=== PATIENT | male | born 1995 | race Caucasian/White ===

== ENCOUNTER 2016-03-26 19:20 | Emergency (ER) | payer BC, OTHER ==
[2016-03-26 19:26] VITALS: O2SAT 95
[2016-03-26] MEDS ORDERED: VANCOMYCIN HCL/NORMAL SALINE 250 ML IV ONE (19:37)
--- NOTE | 2016-03-26 19:46 | EDPHY ---
[id number] [id number] CHIEF COMPLAINT: Possible infected laceration HISTORY OF PRESENT ILLNESS: 21-year-old immunocompetent male with up-to-date tetanus states that 3 weeks ago while he was doing box jumps at home in [place] he sustained a right pretibial laceration which was subsequently sutured at a local hospital and he was placed on doxycycline. Sutures removed 14 days later and the area had no erythema. However he has been skiing for the past several days and noticed that the area possibly dehisced and has new erythema And discharge as well With lymphangitic streaking. No new trauma. No fever no chills. PHYSICAL EXAM (Prior to examination, patient consented to physical exam, hands were washed and my usual and customary physical exam procedures followed) 1) GENERAL: Well-developed, well-nourished, alert and oriented. Appears to be in no acute distress. 2) HEAD: Normocephalic 3) HEENT: sclera anicteric 4) LUNGS: Breathing comfortably. 5) SKIN: right pretibial region he has a granulating wound with no fetid odor. He has lymphangitic streaking extending proximally. Extent of erythema outlined 6) MUSCULOSKELETAL: compartments are soft. DP PT pulses are present and brisk. 7) NEUROLOGIC: Full sensation distally (Jenny,D Shanell) Constitutional: Initial Vital Signs Temperature (C) 36.8 C 03/26/16 19:23 Heart Rate 62 03/26/16 19:23 Respiratory Rate 14 03/26/16 19:23 Blood Pressure 140/78 H 03/26/16 19:23 O2 Sat (%) 95 03/26/16 19:23 O2 Delivery Mode Room Air Allergies/Adverse Reactions: amoxicillin Allergy (Verified 01/14/15 19:00) azithromycin [From Zithromax] Allergy (Verified 01/14/15 19:00) cefprozil [From Cefzil] Allergy (Verified 01/14/15 19:00) Sulfa (Sulfonamide Antibiotics) Allergy (Verified 01/14/15 19:00) MDM/Departure - MDM Medications Given: Discontinued Medications Vancomycin/Sodium Chloride (Vancomycin 1 Gm (Premix)) 250 mls @ 250 mls/hr IV EDNOW ONE PRN Reason: Protocol Stop: 03/26/16 20:36 Last Admin: 03/26/16 19:53 Dose: 250 mls ED Course/Re-evaluation: 7:44 p.m.: Discussed case Dr. Gabriela Gibson in the ER. patient has a newly infected wound of the right pretibial region, likely exacerbated by recurrent ski boot pressure and impaction. Recommended elevation and avoiding of pressure -placing activities. He has allergies to multiple medications including cephalosporins, penicillin, sulfa. Have outlined the extent of erythema. Will administer dose of vancomycin and subsequently will likely necessitate doxycycline outpatient Given his multiple allergies. 8:36 p.m.: Re-evaluation. Erythema has not extended farther proximally. Doubt necrotizing fasciitis. Doubt DVT or compartment syndrome. Recommended patient return in 12 hours for recheck and possible re-dosing with vancomycin. Will hold on oral antibiotics at this point until further recheck in 12 hours which he agrees to do. (Juan Alvarado) This patient was evaluated in treated by the physician speech and language assistant. I have reviewed the documentation and agree with the plan of care. I am the secondary supervising physician. (Gabriela Gibson) - Depart Disposition: Home, Routine, Self-Care Clinical Impression: Cellulitis of right leg Condition: Good Instructions: Cellulitis (ED) Additional Instructions: Return to the ER if you develop fever, nausea, vomiting, flu-like symptoms. Referrals: Return, to the ER in 12 hours for re-evaluation [Other] - 03/27/16 9:00 am
[2016-03-26 19:53] LABS: % IMMATURE GRANULYOCYTES 0.3 % (0.0-1.1); ABSOLUTE IMMATURE GRANULOCYTES 0.04 10^3/uL (0.00-0.10); ADD DIFF? NO; ADD MORPH? NO; ADD SCAN? NO; ATYPICAL LYMPHOCYTE FLAG 0 (0-99); FRAGMENT RBC FLAG 0 (0-99); HEMOGLOBIN 15.9 g/dL (13.7-17.5); LEFT SHIFT FLG 0 (0-99); LIPEMIA HEMOLYSIS FLAG 90 (0-99); MEAN CELL HEMOGLOBIN 29.4 pg (27.9-34.1); MEAN CELL HEMOGLOBIN CONCENTR. 35.3 g/dL (32.4-36.7); MEAN CELL VOLUME 83.3 fL (81.5-99.8); MEAN PLATELET VOLUME 11.8 fL (8.7-11.7); PLATELET CLUMPS FLAG 10 (0-99); PLATELET COUNT 175 10^3/uL (150-400); RED CELL DISTRIBUTION WIDTH 12.9 % (11.5-15.2)
[2016-03-26 20:02] LABS: ANION GAP 13 mEq/L (8-16); CARBON DIOXIDE 26 mEq/l (22-31); CHLORIDE 100 mEq/L (97-110); GLOMERULAR FILTRATION RATE > 60; GLUCOSE 95 mg/dL (70-100); POTASSIUM 4.3 mEq/L (3.5-5.2); SODIUM 139 mEq/L (134-144)
[2016-03-26 21:35] VITALS: BP 132/60; PULSE 56; RESP 16; TEMP 98.1
== END 2016-03-26 21:35 | disposition home or self-care (01) ==
DX: L03.115 Cellulitis of right lower limb (principal)
CPT/HCPCS: 96365; J3370

== ENCOUNTER 2016-03-27 10:24 | Emergency (ER) | payer BC ==
[2016-03-27] MEDS ORDERED: VANCOMYCIN HCL/NORMAL SALINE 250 ML IV ONE (10:40)
--- NOTE | 2016-03-27 10:41 | EDPHY ---
[id number] of right leg cellulitis. He initially lacerated his right pretibial area 3 weeks ago while working out and had subsequent laceration repair and course of doxycycline. He's been skiing for the past several days and noticed new erythema, discharge, and lymphatic streaking at the site. He was evaluated for this in our ED yesterday and given 1gm IV vancomycin. He was not discharged with oral antibiotics and was instructed to return in 12 hours for recheck and possible repeat dose of vancomycin. He reports feeling improved since yesterday with decreased redness and swelling. He continues to have clear drainage drainage from the wound and mild pain at the site. He denies fever or other changes in condition. REVIEW OF SYSTEMS: Aside from elements discussed in the HPI, a comprehensive 10-point review of systems was reviewed and is negative. PMH: Denies Reviewed prior medical history including ED visit yesterday 03/26/16 for cellulitis. SOCIAL HISTORY: [employer] student PHYSICAL EXAM: General:Patient is alert, in no acute distress. Skin: Normal color. No rash. Warm and dry. Right cook: erythema well within previous marked borders, area of serous discharge from old laceration, no fluctuance. Extremities: Cellulitis to right cook otherwise normal appearance. Full range of motion. Neuro: Oriented x3. Normal motor function. Normal sensory function. ED Course: This is a healthy 21 y/o male presenting to the ED for a recheck of right cook cellulitis. He reports erythema and swelling have decreased since receiving 1gm IV Vancomycin yesterday. On exam, erythema is well within previously drawn border with some serous drainage from the laceration. No evidence of abscess or systemic illness. Plan for repeat dose of IV vancomycin, consult with ID, and discharge on oral doxycycline due to allergies (throat swelling, hives) to several other antibiotics. He is comfortable with this plan. 1044: Consulted with PHOEBE Marrero to arrange for outpatient follow-up. He recommends patient call the [facility] later today to schedule a follow up appointment. MDM: This patient presents for repeat Vancomycin dose and re-evaluation. He appears to be responding well to vancomycin. Given his extensive antibiotic allergies, we will discharge him on doxycycline with close ID followup. He does not appear to have a drainable abscess nor evidence of osteomyelitis or systemic infection. General Time Seen by Provider: 03/27/16 10:25 Initial Vital Signs: Initial Vital Signs Temperature (C) 36.4 C 03/27/16 10:27 Heart Rate 53 L 03/27/16 10:27 Respiratory Rate 16 03/27/16 10:27 Blood Pressure 136/66 H 03/27/16 10:27 O2 Sat (%) 96 03/27/16 10:27 O2 Delivery Mode Room Air Allergies/Adverse Reactions: amoxicillin Allergy (Verified 03/27/16 10:29) azithromycin [From Zithromax] Allergy (Verified 03/27/16 10:29) cefprozil [From Cefzil] Allergy (Verified 03/27/16 10:29) Sulfa (Sulfonamide Antibiotics) Allergy (Verified 03/27/16 10:29) Home Medications: Medication Instructions Recorded Doxycycline Hyclate [Vibramycin] 100 mg PO BID #20 cap 03/27/16 Departure - Departure Disposition: Home, Routine, Self-Care Clinical Impression: Cellulitis of right leg Condition: Good Instructions: Cellulitis (ED) Additional Instructions: 1. Take doxycycline as prescribed. Be sure to complete the entire prescription even if you feel better. 2. Use ibuprofen or Tylenol as directed on the package as needed for pain for the next 3-4 days. 3. Call [facility] today to schedule a follow up appointment. 4. Return to the ED for worsening of condition. Referrals: [facility] [Outside] - As per Instructions Prescriptions: Doxycycline Hyclate [Vibramycin] 100 mg PO BID #20 cap Report Scribed for: Babak Flores Report Scribed by: Rosa Maldonado Date of Report: 03/27/16 Time of Report: 10:26 Physician Review and Approval Statement: Portions of this note were transcribed by an ED scribe. I personally performed the history, physical exam, and medical decision making; and confirm the accuracy of the information in the transcribed note.
[2016-03-27 12:12] VITALS: BP 124/64; PULSE 57; RESP 18; TEMP 98.1; O2SAT 94
== END 2016-03-27 12:12 | disposition home or self-care (01) ==
DX: L03.115 Cellulitis of right lower limb (principal)
CPT/HCPCS: 96374; J3370

== ENCOUNTER → 2016-04-15 | Outpatient (CLI) | payer BC ==
--- NOTE | 2016-04-15 16:33 | US ---
Sonography Limited to the Epigastric Midline Abdomen Clinical History: 21-year-old male with a mid-abdominal "bump" just superior to the umbilicus. Rule o ut hernia. The patient indicates that he has had the stomach flu 5 days ago, and has been vomiting in tensely. ICD 10 Diagnostic Code: K43.9. Technique: A linear 9 MHz transducer was used to sonographically evaluate the area of palpable concer n, noted approximately 3 to 4 cm above the umbilicus. Imaging was performed with the patient supine, standing, and with and without Valsalva maneuver, and cine clips are stored on PACS. Comparison Study: None. Findings: On cine clip A:4 (acquired while the patient was standing and performing a Valsalva maneuve r), there appears to be a tiny focal diastasis of the linea alba with some herniation of omental fat. There is no subcutaneous fluid collection. Impression: Suspect tiny epigastric fat-containing hernia in the supraumbilical region. As requested, results were called to Darlene Bell, Nurse Practitioner. A test result has been communicated to a licensed care provider and documented in the [facility] Critical Result system on 04/15/2016 16:28, Message ID [id number].
== END ==
LOC: FIMAGING 15:35
PROVIDERS: ATTEND Nurse Practitioner Family
DX: R19.05 Periumbilic swelling, mass or lump (principal)

== ENCOUNTER → 2016-04-18 | Day surgery (SDC) | payer BC ==
[~2016-04-18] MED LIST: BUPIVACAINE 0.5% 30 ML SDV ONE; DEXAMETHASONE 4 MG/ML VIAL ONE; KETOROLAC 30 MG/1 ML SDV ONE; LIDOCAINE 2% 5 ML SDV ONE; LR 1,000 ML IV ONE; MIDAZOLAM 2 MG/2 ML VIAL ONE; ONDANSETRON 4 MG/2 ML VIAL ONE; PROPOFOL 200 MG/20 ML VIAL ONE; fentaNYL 100 MCG/2 ML INJ ONE; levOFLOXACIN 500 MG/DEXTROSE 100 ML IV ONE
--- NOTE | 2016-04-19 11:24 | GOP ---
[f rep st] OPERATIVE REPORT DATE OF OPERATION: 04/18/2016 SURGEON: Eric Eduardo MD DEPARTMENT EDITOR: Meghan Jessica PA-C ANESTHESIOLOGIST: Harman Raines IV, DO PREOPERATIVE DIAGNOSIS: Incarcerated epigastric ventral hernia. POSTOPERATIVE DIAGNOSIS: Incarcerated epigastric ventral hernia. PROCEDURE PERFORMED: Ventral hernia repair. FINDINGS: The patient was found to have a small 4 mm defect in the upper abdominal midline containin g incarcerated abdominal fat. DESCRIPTION OF PROCEDURE: The patient was taken to the operating room where he received satisfactory general endotracheal anesthesia by Dr. Raines, placed in the supine position, prepped and draped in t he usual sterile fashion. A longitudinal incision was made over the palpable mass. Dissection was c arried down through the subcutaneous tissue and the incarcerated hernia sac was dissected free from s urrounding structures and dissected back to the fascia level. The sac was opened, its contents were excised, containing only fat. The remainder was reduced back into the abdomen. The defect was close d with [id number] Surgilon sutures. The wound was infiltrated with 0.5% Marcaine. The subcu was closed with 3-0 Vicryl and the skin with a 4-0 Monocryl subcuticular stitch. He tolerated the pr ocedure well, taken recovery room in good condition. No complications. /[id number]/MODL
== END | disposition home or self-care (01) ==
LOC: FSGY 12:20
PROVIDERS: ATTEND Surgery
PROC: 0WQF0ZZ Repair Abdominal Wall, Open Approach (ICD-10-PCS; principal; 2016-04-18 14:00)
DX: K43.9 Ventral hernia without obstruction or gangrene (principal); Z88.2 Allergy status to sulfonamides
CPT/HCPCS: J1100; J1885; J1956; J2250; J2405; J2704; J3010